=== PATIENT | male | born 1965 | race Caucasian/White ===

== ENCOUNTER → 2019-05-16 | Outpatient (CLI) | payer BC ==
--- NOTE | 2019-05-16 23:05 | CONS ---
CONSULTATION DATE OF SERVICE: 05/16/2019 This patient is a 54-year-old gentleman who has been evaluated in [facility] for obstructive sleep apnea-hypopnea syndrome. HISTORY OF PRESENT ILLNESS/SLEEP-WAKE EVALUATION: The patient was diagnosed with obstructive sleep apnea about 6 years ago. Since that time he has been on treatment with CPAP every night for the whole night. According to the patient, he does not have any snoring with the CPAP and he maybe wakes up 2 times with one episode of nocturia at night. His sleep schedule on working days is from 10 p.m. to 6 a.m. and on weekends from 11 p.m. to 7 a.m. No problems with falling asleep. No TV in bedroom. No history of hypnagogic hallucinations or sleep paralysis. [place] Sleepiness Scale today is zero. I checked his CPAP unit. CPAP pressure is 8 cm of water. Usage is 29/30 nights for more than 4 hours with average usage 8 hours per night. RAMP started from 4 cm of water. Machine does not have information about apnea-hypopnea index. MEDICATIONS: None at the present time. PAST SURGICAL HISTORY: Appendectomy, right knee arthroscopic surgery. SOCIAL HISTORY: Negative for smoking. Alcohol consumption occasional. FAMILY HISTORY: Hypertension, hyperlipidemia, arthritis, snoring, bladder carcinoma in his father. REVIEW OF SYSTEMS: Basically negative. No chest pain. No headaches. No blood in the stool or urine. Denied any significant excessive daytime sleepiness. PHYSICAL EXAMINATION: GENERAL: A pleasant gentleman without distress. VITAL SIGNS: BP 118/74, HR 82, RR 16, height 5 feet 10-1/4 inches, body mass index 27.8, temperature 98.7, oxygen saturation at room air 95%. HEENT: PERRLA, EOMI. Evaluation of oropharynx showed tongue protrudes midline. Extremely low position of soft palate. Mallampati IV. Some restriction of nasal breathing. NECK: Supple. No JVD. Thyroid is not palpable. Neck measures 16-1/2 inches in circumference. LUNGS: Clear to percussion and to auscultation. Good air exchange. No wheezing or rhonchi. HEART: S1, S2 regular. No murmurs, gallops or rubs. ABDOMEN: Soft. No tenderness. EXTREMITIES: No clubbing or cyanosis. MEAT GRADER: Awake, alert, and oriented X3. Cranial nerves 2 to 7 intact. There is no fasciculation or atrophy. noted. No focal deficits observed. IMPRESSION: 1. Obstructive sleep apnea-hypopnea syndrome diagnosed in 2013. Since that time, patient has been on treatment with CPAP. He demonstrated practically 100% compliance with treatment, benefitting from treatment. 2. Low position of soft palate, restriction of nasal breathing. 3. History of seasonal allergies. 4. Status post appendectomy. 5. Status post knee arthroscopic surgery. 6. History of increasing blood pressure in the past; normalization of blood pressure after being treated with CPAP. PLAN: 1. Prescription to replace CPAP unit. Old unit does not have any information about apnea-hypopnea index. Machine is more than 6 years old. 2. Patient will continue to use CPAP equipment every night for the whole night. 3. Watching weight. 4. Sleep hygiene with regular time in bed for at least 7-1/2 to 8 hours. 5. No driving if feeling any sleepiness. Thank you very much for allowing me to participate in the management of your patient. Sincerely, Obed Smith MD, PhD, FAASM Diplomat of [place] [employer] [place] [employer] Public Administration Teacher of [facility] [place] MMODL / IJN: [id number] /
== END | disposition home or self-care (01) ==
LOC: SLEEP 16:42
PROVIDERS: ATTEND Internal Medicine
DX: G47.33 Obstructive sleep apnea (adult) (pediatric) (principal); Z87.892 Personal history of anaphylaxis; Z86.79 Personal history of other diseases of the circulatory system; Z99.89 Dependence on other enabling machines and devices; Z96.659 Presence of unspecified artificial knee joint; Z98.890 Other specified postprocedural states
CPT/HCPCS: 99211

== ENCOUNTER → 2019-10-03 | Outpatient (CLI) | payer BC ==
--- NOTE | 2019-10-03 22:48 | SFUN ---
SLEEP CENTER FOLLOW UP NOTE DATE OF SERVICE: 10/03/2019 This patient is a 54-year-old gentleman who has been followed in Sleep Center for treatment of obstructive sleep apnea/hypopnea syndrome. The patient is able to use his equipment every night for the whole night. He does not snore with the machine. He sleeps well. [place] Sleepiness Scale today is 4, which is in normal range. I checked his CPAP unit. CPAP pressure is 8 cm of water, usage 29/30 nights for more than 4 hours with average usage 7.4 hours. Leak is only 1 L/minute. Apnea-hypopnea index only 1.2, which is perfect. MEDICATIONS: None. PHYSICAL EXAMINATION: GENERAL: A pleasant patient in no distress. VITAL SIGNS: BP 148/84, HR 92, RR 16, weight 196, temperature 97.3, oxygen saturation at room air 97%. HEENT: PERRLA, EOMI. Evaluation of oropharynx showed tongue protrudes midline. Extremely low soft palate. Mallampati IV. NECK: Supple. No JVD. Thyroid is not palpable. LUNGS: Clear to percussion and to auscultation. Good air exchange. No wheezing or rhonchi. HEART: S1, S2 regular. No murmurs, gallops or rubs. ABDOMEN: Soft and nontender. Bowel sounds are present. No organomegaly. EXTREMITIES: No clubbing or cyanosis. PLASTIC SHEETS FINISHING SUPERVISOR: Awake, alert, and oriented X3. Cranial nerves 2 to 7 intact. There is no fasciculation or atrophy. noted. No focal deficits observed. IMPRESSION: 1. Obstructive sleep apnea/hypopnea syndrome. Patient demonstrated 100% compliance with treatment, benefitting from treatment. 2. Seasonal allergies. 3. Status post appendectomy. 4. Status post knee arthroscopic surgery. 5. History of increasing blood pressure in the past before treatment with CPAP. PLAN: 1. Patient will continue to use CPAP equipment every night for the whole night. 2. Watching weight. 3. Sleep hygiene with regular time in bed for at least 7-1/2 to 8 hours. 4. No driving if feeling sleepiness. 5. Follow-up visit in one year or earlier if patient has any problems. Thank you very much for allowing me to participate in the management of your patient. Sincerely, Obed Smith MD, PhD, FAASM Diplomat of [place] [employer] [place] [employer] Second Time Worker of [facility] [place] MMODL / TIRXIEN: [id number] /
== END | disposition home or self-care (01) ==
LOC: SLEEP 14:51
PROVIDERS: ATTEND Internal Medicine
DX: G47.33 Obstructive sleep apnea (adult) (pediatric) (principal); J30.2 Other seasonal allergic rhinitis; Z90.89 Acquired absence of other organs; Z96.659 Presence of unspecified artificial knee joint

== ENCOUNTER → 2023-02-16 | Outpatient (CLI) | payer BC ==
--- NOTE | 2023-02-16 13:57 | P.SLEEP ---
History of Present Illness DATE: 02/16/2023 CONSULTATION/NEW PATIENT EVALUATION HISTORY OF PRESENT ILLNESS/SLEEP-WAKE EVALUATION: 57 year old gentleman had been evaluated in the sleep center for obstructive sleep apnea hypopnea syndrome. Patient was seen in our office more than 3 years ago. Patient is on treatment with CPAP for obstructive sleep apnea hypopnea syndrome. Patient continued to use his CPAP equipment every night for the whole night . I checked CPAP unit. CPAP pressure is 8 cm of water. Usage is 100% of nights, average 6.9 hours per night, which is good compliance. Leak is 1 L/m, which is normal. Apnea- hypopnea index is 1.4 which is normal. SLEEP SCHEDULE: Usually sleep schedule from 910 PM until 56 AM 7 days a week. FALLING ASLEEP: No problems with falling asleep. DURING SLEEP: No snoring while on treatment with CPAP. Patient may wake up from sleep up to 2 times with one episode of nocturia. No history of hypnogogical hallucinations, sleep paralysis, or cataplexy. DURING THE DAY/WAKE STATE: No symptoms of significant excessive daytime sleepiness. [place] sleepiness scale is 0. Patient doesn't take naps. PAST MEDICAL HISTORY: Seasonal ALLERGIES, history of increasing blood pressure in the past before CPAP treatment. PAST SURGICAL HISTORY: Appendectomy, arthroscopic knee surgery. MEDICATIONS: None at the present time. SOCIAL HISTORY: Negative for smoking, alcohol consumption occasional. FAMILY HISTORY: Hypertension, hyperlipidemia, bladder carcinoma. REVIEW OF SYSTEMS: Occasional awakenings from sleep. No fevers. No double vision. No recent chest pain. No shortness of breath. No abdominal pain. No bleeding episodes. No blood in urine. No seizure episodes. PHYSICAL EXAMINATION: GENERAL: A pleasant patient without any distress. VITAL SIGNS: BP 121/80, HR 64, RR 16, weight 176.6 pounds, height 5 foot 9-1/4 inches, body mass index 25.8. HEENT: PERRLA, EOMI. Evaluation of oropharynx showed tongue protrudes midline, low position of soft palate Mallampati 4. NECK: Supple. No JVD. Thyroid is not palpable. 16 inches in circumference. LUNGS: Clear to percussion and to auscultation. Good air exchange. No wheezing or rhonchi. HEART: S1, S2 regular. No murmurs, gallops or rubs. ABDOMEN: Soft and nontender. Bowel sounds are present. No organomegaly appreciated. EXTREMITIES: No clubbing or cyanosis. CANE WEIGHER HELPER: Awake, alert, and oriented x3. Cranial nerves 2 to 7 intact. There is no fasciculation or atrophy noted. No focal deficits observed. ASSESSMENT: 1. Obstructive sleep apnea hypopnea syndrome, patient demonstrated 100% compliance with CPAP treatment, normal respiration on CPAP. 2. History of seasonal ALLERGY. 3. Status post appendectomy. 4. Status post arthroscopic knee surgery. 5 history of increasing blood pressure in the past before CPAP therapy. PLAN: 1. Patient will continue treatment with CPAP every night for the whole night 2. Prescription for all necessary CPAP supplies including mask, tube and filters have been written. 3. Preferable position during sleep on the side. 4. No driving if patient feels any sleepiness. Patient is aware of civil and criminal liability for unsafe driving. 5. Sleep hygiene with regular sleep time for at least 7.5-8 hours. 6. Watching weight. 7. Follow-up visit in 6 months or earlier if patient has any problems Thank you very much for referring this patient for consultation. Sincerely, Obed Smith MD, PhD, FAASM. Diplomat of [place] [employer], Sleep Medicine Board by [place] [employer] [place] [employer] Aeroplane Pilot of [facility] [place] Sleep Note - Sleep Note Sleep Note: Temperature: Pulse Rate: Respiratory Rate: Blood Pressure: SpO2: Height: Weight: BMI: Neck Circumference:
== END ==
LOC: 3 N SLEEP 13:19
PROVIDERS: ATTEND Internal Medicine
DX: G47.33 Obstructive sleep apnea (adult) (pediatric) (principal); T81.89XA Other complications of procedures, not elsewhere classified, initial encounter; R03.0 Elevated blood-pressure reading, without diagnosis of hypertension; J30.2 Other seasonal allergic rhinitis; Z98.890 Other specified postprocedural states; Z99.89 Dependence on other enabling machines and devices
CPT/HCPCS: 99202